=== PATIENT | female | born 1960 | race Caucasian/White ===

== ENCOUNTER 2021-03-11 08:43 | Outpatient (CLI) | payer OTHER | END 2021-03-11 08:44 | disposition home or self-care (01) | LOC: CSHWCC 08:43 | PROVIDERS: ATTEND Nurse Practitioner Family | DX: I87.331 Chronic venous hypertension (idiopathic) with ulcer and inflammation of right lower extremity (principal); I87.2 Venous insufficiency (chronic) (peripheral); L97.212 Non-pressure chronic ulcer of right calf with fat layer exposed; I89.0 Lymphedema, not elsewhere classified; R60.0 Localized edema; K21.9 Gastro-esophageal reflux disease without esophagitis; M17.9 Osteoarthritis of knee, unspecified; R01.1 Cardiac murmur, unspecified; Z85.3 Personal history of malignant neoplasm of breast; Z85.9 Personal history of malignant neoplasm, unspecified | CPT/HCPCS: 99213; G0463 ==

== ENCOUNTER 2021-05-19 08:20 | Outpatient (CLI) | payer OTHER | END 2021-05-19 08:21 | disposition home or self-care (01) | LOC: CSHWCC 08:20 | PROVIDERS: ATTEND Nurse Practitioner Family | DX: R60.0 Localized edema (principal); I10 Essential (primary) hypertension; I87.2 Venous insufficiency (chronic) (peripheral); K21.9 Gastro-esophageal reflux disease without esophagitis; M17.9 Osteoarthritis of knee, unspecified; I89.0 Lymphedema, not elsewhere classified; R01.1 Cardiac murmur, unspecified; Z85.3 Personal history of malignant neoplasm of breast ==

== ENCOUNTER 2022-04-25 14:05 | Outpatient (CLI) | payer OTHER | END 2022-04-25 14:06 | disposition home or self-care (01) | LOC: CSHWCC 14:05 | PROVIDERS: ATTEND Nurse Practitioner Family | DX: R60.0 Localized edema (principal) | CPT/HCPCS: 99212; G0463 ==